=== PATIENT | male | born 1960 | race Caucasian/White ===

== ENCOUNTER 2018-09-19 10:15 | Emergency (ER) | payer OTHER ==
[2018-09-19 11:10] LABS: ADD MAN DIFF? NO; HEMOGLOBIN 10.3 g/dl (14.0-18.0); RED BLOOD COUNT 3.46 10^6/ul (4.70-6.10)
[2018-09-19 11:10] LABS: WHITE BLOOD COUNT 8.1 10^3/ul (4.8-10.8)
[2018-09-19 11:11] LABS: BASOPHIL # 0.1 10^3/ul (0.0-0.1); BASOPHILS % 0.6 % (0.0-2.0); EOSINOPHILS # 0.3 10^3/ul (0.0-0.5); EOSINOPHILS % 3.5 % (0.0-7.0); HEMATOCRIT 30.9 % (42.0-52.0); LYMPHOCYTES # 1.5 10^3/ul (0.8-2.9); LYMPHOCYTES % 18.1 % (15.0-51.0); MEAN CORPUSCULAR HEMOGLOBIN 29.8 pg (29.0-33.0); MEAN CORPUSCULAR HGB CONC 33.3 g/dl (32.0-37.0); MEAN CORPUSCULAR VOLUME 89.3 fl (82.0-101.0); MEAN PLATELET VOLUME 9.9 fl (7.4-10.4); MONOCYTE # 0.7 10^3/ul (0.3-0.9); MONOCYTES % 8.1 % (0.0-11.0); NEUTROPHIL # 5.5 10^3/ul (1.6-7.5); NEUTROPHILS % 68.8 % (39.0-77.0); PLATELET COUNT 168 10^3/UL (140-415); RED CELL DISTRIBUTION WIDTH 12.3 % (11.5-14.5)
[2018-09-19 11:29] LABS: INR 0.96; PROTIME 12.9 Sec (11.9-14.9)
[2018-09-19 11:30] LABS: PARTIAL THROMBOPLASTIN TIME 31.9 Sec (23.0-35.0)
[2018-09-19 11:59] LABS: ALANINE AMINOTRANSFERASE 18 IU/L (13-69); ALBUMIN 3.8 g/dl (3.3-4.9); ALBUMIN/GLOBULIN RATIO 1.15; ALKALINE PHOSPHATASE 59 IU/L (42-121); ANION GAP 13 (5-13); ASPARTATE AMINO TRANSFERASE 16 IU/L (15-46); BILIRUBIN,INDIRECT 0.2 mg/dl (0-1.1); BILIRUBIN,TOTAL 0.2 mg/dl (0.2-1.3); BLOOD UREA NITROGEN 53 mg/dl (7-20); CALCIUM 8.6 mg/dl (8.4-10.2); CARBON DIOXIDE 27 mmol/L (21-31); CHLORIDE 100 mmol/L (97-110); CREATININE 6.92 mg/dl (0.61-1.24); Estimated GFR 8 mL/min (>60); GLUCOSE 243 mg/dl (70-220); POTASSIUM 4.6 mmol/L (3.5-5.1); SODIUM 140 mmol/L (135-144); TOTAL PROTEIN 7.1 g/dl (6.1-8.1)
== END 2018-09-19 13:08 | disposition home or self-care (01) ==
LOC: FTE 10:15
DX: M79.604 Pain in right leg (principal); I12.0 Hypertensive chronic kidney disease with stage 5 chronic kidney disease or end stage renal disease; N18.6 End stage renal disease; E11.22 Type 2 diabetes mellitus with diabetic chronic kidney disease; F17.210 Nicotine dependence, cigarettes, uncomplicated; Z99.2 Dependence on renal dialysis
CPT/HCPCS: 80053; 85025; 85610; 85730; 93971; 99284-25

== ENCOUNTER 2018-09-28 11:20 | Inpatient (IN) | payer OTHER ==
[2018-09-28 12:25] LABS: ADD MAN DIFF? NO
[2018-09-28 12:44] LABS: ANION GAP 10 (5-13); BLOOD UREA NITROGEN 75 mg/dl (7-20); CALCIUM 7.6 mg/dl (8.4-10.2); CARBON DIOXIDE 26 mmol/L (21-31); CHLORIDE 99 mmol/L (97-110); Estimated GFR 6 mL/min (>60); GLUCOSE 162 mg/dl (70-220); POTASSIUM 5.3 mmol/L (3.5-5.1); SODIUM 135 mmol/L (135-144)
[2018-09-28 12:54] LABS: WHITE BLOOD COUNT 7.6 10^3/ul (4.8-10.8)
[2018-09-28 12:54] LABS: BASOPHILS % 0.4 % (0.0-2.0); EOSINOPHILS # 0.2 10^3/ul (0.0-0.5); EOSINOPHILS % 2.8 % (0.0-7.0); HEMATOCRIT 26.4 % (42.0-52.0); HEMOGLOBIN 8.3 g/dl (14.0-18.0); LYMPHOCYTES # 1.1 10^3/ul (0.8-2.9); LYMPHOCYTES % 14.8 % (15.0-51.0); MEAN CORPUSCULAR HEMOGLOBIN 29.6 pg (29.0-33.0); MEAN CORPUSCULAR HGB CONC 31.4 g/dl (32.0-37.0); MEAN CORPUSCULAR VOLUME 94.3 fl (82.0-101.0); MEAN PLATELET VOLUME 10.2 fl (7.4-10.4); MONOCYTE # 0.3 10^3/ul (0.3-0.9); MONOCYTES % 4.3 % (0.0-11.0); NEUTROPHIL # 5.9 10^3/ul (1.6-7.5); PLATELET COUNT 136 10^3/UL (140-415); RED CELL DISTRIBUTION WIDTH 13.1 % (11.5-14.5)
[2018-09-28 13:24] LABS: INR 1.15; PROTIME 14.8 Sec (11.9-14.9); PT RATIO 1.2
[2018-09-28] MEDS ORDERED: ACETAMINOPHEN 325 MG TAB PO (14:00)
[2018-09-28] MEDS ORDERED: ONDANSETRON 4 MG INJ IV ×2 (14:00→14:30)
[2018-09-28] MEDS: DOCUSATE SODIUM 100 MG CAP PO (14:30)
[2018-09-28] MEDS ORDERED: DOCUSATE SODIUM 100 MG CAP PO (14:30)
[2018-09-28] MEDS ORDERED: morphine 2 MG INJ IV (14:30)
[2018-09-28] MEDS ORDERED: NACL 0.9% 3 ML SYG IV (14:30)
[2018-09-28] MEDS ORDERED: HYDROCODONE/APAP (5/325) TAB PO (14:30)
[2018-09-28] MEDS ORDERED: BISACODYL (EC) 5 MG TAB PO (14:30)
[2018-09-28 14:43] LABS: ALANINE AMINOTRANSFERASE 16 IU/L (13-69); ALBUMIN 3.6 g/dl (3.3-4.9); ALKALINE PHOSPHATASE 44 IU/L (42-121); ASPARTATE AMINO TRANSFERASE 37 IU/L (15-46); BILIRUBIN,INDIRECT 0.2 mg/dl (0-1.1); BILIRUBIN,TOTAL 0.2 mg/dl (0.2-1.3); MAGNESIUM 1.5 mg/dl (1.7-2.5); PHOSPHORUS 6.2 mg/dl (2.5-4.9); TOTAL PROTEIN 7.1 g/dl (6.1-8.1)
[2018-09-28] MEDS: LABETALOL HCL 20MG INJ IV (15:25)
[2018-09-28] MEDS: LORAZEPAM 2 MG INJ IV (16:52)
[2018-09-28] MEDS ORDERED: INSULIN ASPART [NOVOLOG] 3 ML PEN SC (18:00)
[2018-09-28] MEDS: ISOSORBIDE MONONITRATE(SR)60 MG TAB PO (18:12)
[2018-09-28] MEDS: NIFEdipine (XL) 60 MG TAB PO (18:13)
[2018-09-28] MEDS ORDERED: hydrALAzine 20 MG INJ IV (18:30)
[2018-09-28 19:42] LABS: HEPATITIS B SURFACE ANTIGEN NEGATIVE (NEGATIVE)
[2018-09-28 19:59] LABS: HEPATITIS B SURFACE ANTIBODY POSITIVE (NEGATIVE)
[2018-09-28] MEDS: ACETAMINOPHEN 325 MG TAB PO (20:03)
[2018-09-28] MEDS: INSULIN ASPART [NOVOLOG] 3 ML PEN SC (21:00)
[2018-09-28] MEDS: CALCIUM ACETATE 667 MG CAP PO (21:22)
[2018-09-28] MEDS ORDERED: VANCOMYCIN IV PER PHARMACY XX (23:55)
[2018-09-29] MEDS: ACETAMINOPHEN 1000MG/100ML IV 100 ML IVPB (00:18)
[2018-09-29] MEDS: GABAPENTIN 300 MG CAP PO ×2 (00:35→22:08)
[2018-09-29] MEDS: FAMOTIDINE 20 MG TAB PO ×2 (00:35→22:09)
[2018-09-29] MEDS: NIFEdipine (XL) 60 MG TAB PO ×3 (00:38→22:09)
[2018-09-29] MEDS: METOPROLOL 25 MG TAB PO ×3 (00:39→22:09)
[2018-09-29] MEDS: SOD CHLORIDE 0.9% 500 ML IV (00:39)
[2018-09-29] MEDS: ATORVASTATIN 10 MG TAB PO (00:39)
[2018-09-29] MEDS: CALCIUM ACETATE 667 MG CAP PO ×4 (00:40→16:55)
[2018-09-29 00:59] LABS: PROCALCITONIN 0.94 ng/mL (0.00-0.10)
[2018-09-29] MEDS: CEFTRIAXONE 2 GM/50 ML (PMX) 50 ML IVPB (01:05)
[2018-09-29] MEDS: VANCOMYCIN HCL 2 GM in SOD CHLORIDE 0.9% 500 ML IVPB (01:44)
[2018-09-29] MEDS: ACCU-CHEK XX (01:49)
[2018-09-29 03:26] LABS: ANION GAP 11 (5-13); BLOOD UREA NITROGEN 44 mg/dl (7-20); CALCIUM 8.1 mg/dl (8.4-10.2); CARBON DIOXIDE 30 mmol/L (21-31); CHLORIDE 99 mmol/L (97-110); CREATININE 6.88 mg/dl (0.61-1.24); Estimated GFR 8 mL/min (>60); GLUCOSE 205 mg/dl (70-220); MAGNESIUM 1.7 mg/dl (1.7-2.5); POTASSIUM 4.1 mmol/L (3.5-5.1); SODIUM 140 mmol/L (135-144)
[2018-09-29 04:12] LABS: THYROID STIMULATING HORMONE 0.838 MIU/L (0.465-4.680)
[2018-09-29 05:41] LABS: ADD MAN DIFF? NO
[2018-09-29 05:44] LABS: BASOPHILS % 0.4 % (0.0-2.0); EOSINOPHILS # 0.3 10^3/ul (0.0-0.5); EOSINOPHILS % 4.2 % (0.0-7.0); HEMATOCRIT 26.3 % (42.0-52.0); HEMOGLOBIN 8.5 g/dl (14.0-18.0); LYMPHOCYTES # 1.4 10^3/ul (0.8-2.9); LYMPHOCYTES % 18.8 % (15.0-51.0); MEAN CORPUSCULAR HEMOGLOBIN 30.4 pg (29.0-33.0); MEAN CORPUSCULAR HGB CONC 32.3 g/dl (32.0-37.0); MEAN CORPUSCULAR VOLUME 93.9 fl (82.0-101.0); MEAN PLATELET VOLUME 9.4 fl (7.4-10.4); MONOCYTE # 0.4 10^3/ul (0.3-0.9); MONOCYTES % 5.2 % (0.0-11.0); NEUTROPHIL # 5.2 10^3/ul (1.6-7.5); PLATELET COUNT 151 10^3/UL (140-415); RED CELL DISTRIBUTION WIDTH 12.9 % (11.5-14.5)
[2018-09-29 05:44] LABS: WHITE BLOOD COUNT 7.4 10^3/ul (4.8-10.8)
[2018-09-29 06:08] LABS: ALANINE AMINOTRANSFERASE 17 IU/L (13-69); ALBUMIN 3.3 g/dl (3.3-4.9); ALBUMIN/GLOBULIN RATIO 0.97; ALKALINE PHOSPHATASE 49 IU/L (42-121); ANION GAP 7 (5-13); ASPARTATE AMINO TRANSFERASE 18 IU/L (15-46); BILIRUBIN,INDIRECT 0.3 mg/dl (0-1.1); BILIRUBIN,TOTAL 0.3 mg/dl (0.2-1.3); BLOOD UREA NITROGEN 47 mg/dl (7-20); CARBON DIOXIDE 30 mmol/L (21-31); CHLORIDE 100 mmol/L (97-110); CREATININE 6.59 mg/dl (0.61-1.24); Estimated GFR 9 mL/min (>60); GLUCOSE 232 mg/dl (70-220); MAGNESIUM 1.7 mg/dl (1.7-2.5); POTASSIUM 4.3 mmol/L (3.5-5.1); SODIUM 137 mmol/L (135-144); TOTAL PROTEIN 6.7 g/dl (6.1-8.1)
[2018-09-29 06:55] LABS: TROPONIN-I 0.125 ng/ml (0.000-0.120)
[2018-09-29] MEDS: INSULIN ASPART [NOVOLOG] 3 ML PEN SC ×5 (07:43→21:00)
[2018-09-29] MEDS ORDERED: GUAIFENESIN/DM 5ML CUP PO (08:00)
[2018-09-29] MEDS ORDERED: LEVALBUTEROL (HFA) 15 GM INHALER INH (08:00)
[2018-09-29] MEDS: MAGNESIUM SULFATE 2 GM/50 ML 50 ML IVPB (09:47)
[2018-09-29] MEDS: ASPIRIN (EC) 81 MG TAB PO (09:48)
[2018-09-29] MEDS: DOCUSATE SODIUM 100 MG CAP PO (09:48)
[2018-09-29] MEDS: ISOSORBIDE MONONITRATE(SR)60 MG TAB PO (09:50)
[2018-09-29] MEDS: ENOXAPARIN 30 MG/0.3 ML SYG SC (09:52)
[2018-09-29 12:28] LABS: CREATINE KINASE 170 IU/L (23-200)
[2018-09-29] MEDS: INSULIN GLARGINE [LANTus] (100 UNITS/ML) SYG SC (12:30)
[2018-09-29 12:41] LABS: CK INDEX 1.4; CK-MB 2.34 ng/ml (0.0-2.4); TROPONIN-I 0.078 ng/ml (0.000-0.120)
[2018-09-29] MEDS: FUROSEMIDE 40 MG INJ IV (14:06)
[2018-09-29] MEDS: EPOETIN ALFA-EPBX (ESRD) 10,000 UNIT/ML VIAL SC (16:55)
[2018-09-29 18:08] LABS: ADD UMIC YES; UR ASCORBIC ACID NEGATIVE (NEGATIVE); UR BILIRUBIN (Dip) NEGATIVE (NEGATIVE); UR BLOOD (Dip) NEGATIVE (NEGATIVE); UR CLARITY CLEAR (CLEAR); UR COLOR YELLOW (YELLOW); UR GLUCOSE (Dip) 3+ mg/dL (NEGATIVE); UR KETONES (Dip) NEGATIVE (NEGATIVE); UR LEUKOCYTE ESTERASE (Dip) NEGATIVE Leu/ul (NEGATIVE); UR NITRITE (Dip) NEGATIVE (NEGATIVE); UR RBC 1 /HPF (0-5); UR SPECIFIC GRAVITY (Dip) 1.015 (1.003-1.030); UR TOTAL PROTEIN (Dip) 3+ mg/dl (NEGATIVE); UR UROBILINOGEN (Dip) NEGATIVE (NEGATIVE); UR WBC 2 /HPF (0-5)
[2018-09-29 19:57] LABS: CREATINE KINASE 176 IU/L (23-200)
[2018-09-29 20:10] LABS: CK INDEX 1.5; TROPONIN-I 0.064 ng/ml (0.000-0.120)
[2018-09-29 20:16] LABS: CK-MB 2.71 ng/ml (0.0-2.4)
[2018-09-29] MEDS: ATORVASTATIN 40 MG TAB PO (22:08)
[2018-09-30] MEDS: ACCU-CHEK XX (01:35)
[2018-09-30] MEDS: CEFTRIAXONE 2 GM/50 ML (PMX) 50 ML IVPB ×2 (01:45→23:38)
[2018-09-30 06:21] LABS: ADD MAN DIFF? NO
[2018-09-30 06:48] LABS: ALANINE AMINOTRANSFERASE 24 IU/L (13-69); ALBUMIN 3.1 g/dl (3.3-4.9); ALBUMIN/GLOBULIN RATIO 0.93; ALKALINE PHOSPHATASE 40 IU/L (42-121); ANION GAP 15 (5-13); ASPARTATE AMINO TRANSFERASE 21 IU/L (15-46); BILIRUBIN,INDIRECT 0.2 mg/dl (0-1.1); BILIRUBIN,TOTAL 0.2 mg/dl (0.2-1.3); BLOOD UREA NITROGEN 62 mg/dl (7-20); CALCIUM 7.9 mg/dl (8.4-10.2); CARBON DIOXIDE 23 mmol/L (21-31); CHLORIDE 96 mmol/L (97-110); CREATININE 8.14 mg/dl (0.61-1.24); Estimated GFR 7 mL/min (>60); GLUCOSE 143 mg/dl (70-220); SODIUM 134 mmol/L (135-144); TOTAL PROTEIN 6.4 g/dl (6.1-8.1)
[2018-09-30 07:22] LABS: MAGNESIUM 1.9 mg/dl (1.7-2.5)
[2018-09-30 07:30] LABS: CHOL/HDL RATIO 4.7 RATIO; HDL CHOLESTEROL 27 mg/dl (28-71); LDL CHOLESTEROL,CALCULATED 72 mg/dl; TRIGLYCERIDES 151 mg/dl (0-149)
[2018-09-30 07:30] LABS: CHOLESTEROL 129 mg/dl (100-200)
[2018-09-30 08:05] LABS: BASOPHILS % 0.6 % (0.0-2.0); EOSINOPHILS # 0.4 10^3/ul (0.0-0.5); EOSINOPHILS % 5.9 % (0.0-7.0); HEMATOCRIT 24.9 % (42.0-52.0); HEMOGLOBIN 8.2 g/dl (14.0-18.0); LYMPHOCYTES % 14.2 % (15.0-51.0); MEAN CORPUSCULAR HEMOGLOBIN 29.9 pg (29.0-33.0); MEAN CORPUSCULAR HGB CONC 32.9 g/dl (32.0-37.0); MEAN CORPUSCULAR VOLUME 90.9 fl (82.0-101.0); MEAN PLATELET VOLUME 10.3 fl (7.4-10.4); MONOCYTE # 0.4 10^3/ul (0.3-0.9); MONOCYTES % 5.2 % (0.0-11.0); NEUTROPHIL # 5.2 10^3/ul (1.6-7.5); NEUTROPHILS % 73.4 % (39.0-77.0); PLATELET COUNT 152 10^3/UL (140-415); RED BLOOD COUNT 2.74 10^6/ul (4.70-6.10); RED CELL DISTRIBUTION WIDTH 12.7 % (11.5-14.5)
[2018-09-30 08:05] LABS: WHITE BLOOD COUNT 7.1 10^3/ul (4.8-10.8)
[2018-09-30] MEDS: CALCIUM ACETATE 667 MG CAP PO ×3 (08:16→17:34)
[2018-09-30] MEDS: INSULIN ASPART [NOVOLOG] 3 ML PEN SC ×7 (08:19→21:47)
[2018-09-30] MEDS: INSULIN GLARGINE [LANTus] (100 UNITS/ML) SYG SC (08:21)
[2018-09-30] MEDS: APIXABAN 5 MG TABLET PO ×2 (08:49→21:39)
[2018-09-30] MEDS: FUROSEMIDE 40 MG INJ IV (08:49)
[2018-09-30] MEDS: DOCUSATE SODIUM 100 MG CAP PO (08:49)
[2018-09-30] MEDS: ISOSORBIDE MONONITRATE(SR)60 MG TAB PO (08:49)
[2018-09-30] MEDS: METOPROLOL 25 MG TAB PO (08:50)
[2018-09-30] MEDS: NIFEdipine (XL) 60 MG TAB PO (08:50)
[2018-09-30] MEDS ORDERED: HEPARIN 5,000 UNIT/1 ML VIAL SC (09:00)
[2018-09-30] MEDS: GABAPENTIN 300 MG CAP PO (21:38)
[2018-09-30] MEDS: ATORVASTATIN 40 MG TAB PO (21:38)
[2018-09-30] MEDS: METOPROLOL 50 MG TAB PO (21:39)
[2018-09-30] MEDS: FAMOTIDINE 20 MG TAB PO (21:39)
[2018-09-30] MEDS: LOSARTAN 50 MG TAB PO (21:39)
[2018-10-01] MEDS: ACCU-CHEK XX (02:50)
[2018-10-01 06:22] LABS: ADD MAN DIFF? NO
[2018-10-01 06:23] LABS: BASOPHILS % 0.4 % (0.0-2.0); EOSINOPHILS # 0.3 10^3/ul (0.0-0.5); EOSINOPHILS % 3.6 % (0.0-7.0); HEMATOCRIT 25.1 % (42.0-52.0); HEMOGLOBIN 8.1 g/dl (14.0-18.0); LYMPHOCYTES % 13.4 % (15.0-51.0); MEAN CORPUSCULAR HEMOGLOBIN 30.1 pg (29.0-33.0); MEAN CORPUSCULAR HGB CONC 32.3 g/dl (32.0-37.0); MEAN CORPUSCULAR VOLUME 93.3 fl (82.0-101.0); MEAN PLATELET VOLUME 10.3 fl (7.4-10.4); MONOCYTE # 0.4 10^3/ul (0.3-0.9); NEUTROPHIL # 5.4 10^3/ul (1.6-7.5); PLATELET COUNT 170 10^3/UL (140-415); RED BLOOD COUNT 2.69 10^6/ul (4.70-6.10); RED CELL DISTRIBUTION WIDTH 12.5 % (11.5-14.5)
[2018-10-01 06:23] LABS: WHITE BLOOD COUNT 7.2 10^3/ul (4.8-10.8)
[2018-10-01 06:57] LABS: ALANINE AMINOTRANSFERASE 18 IU/L (13-69); ALBUMIN 3.4 g/dl (3.3-4.9); ALBUMIN/GLOBULIN RATIO 0.94; ALKALINE PHOSPHATASE 57 IU/L (42-121); ANION GAP 8 (5-13); ASPARTATE AMINO TRANSFERASE 18 IU/L (15-46); BILIRUBIN,INDIRECT 0.3 mg/dl (0-1.1); BILIRUBIN,TOTAL 0.3 mg/dl (0.2-1.3); BLOOD UREA NITROGEN 40 mg/dl (7-20); CALCIUM 8.3 mg/dl (8.4-10.2); CARBON DIOXIDE 27 mmol/L (21-31); CHLORIDE 101 mmol/L (97-110); CREATININE 6.75 mg/dl (0.61-1.24); Estimated GFR 8 mL/min (>60); GLUCOSE 115 mg/dl (70-220); POTASSIUM 4.5 mmol/L (3.5-5.1); SODIUM 136 mmol/L (135-144)
[2018-10-01 07:04] LABS: VANCOMYCIN,RANDOM 10.1 ug/ml
[2018-10-01] MEDS: CALCIUM ACETATE 667 MG CAP PO ×3 (07:40→17:24)
[2018-10-01] MEDS: INSULIN ASPART [NOVOLOG] 3 ML PEN SC ×7 (07:40→22:41)
[2018-10-01] MEDS: INSULIN GLARGINE [LANTus] (100 UNITS/ML) SYG SC (07:43)
[2018-10-01] MEDS: DOCUSATE SODIUM 100 MG CAP PO (08:11)
[2018-10-01] MEDS: APIXABAN 5 MG TABLET PO ×2 (08:11→22:42)
[2018-10-01] MEDS: METOPROLOL 50 MG TAB PO ×2 (08:12→22:47)
[2018-10-01] MEDS: ISOSORBIDE MONONITRATE(SR)60 MG TAB PO (08:13)
[2018-10-01] MEDS: NIFEdipine (XL) 60 MG TAB PO (08:14)
[2018-10-01] MEDS: VANCOMYCIN 1 GM 250 ML IVPB (13:30)
[2018-10-01] MEDS: DOXAZOSIN 1 MG TAB PO (13:58)
[2018-10-01] MEDS: ATORVASTATIN 40 MG TAB PO (22:42)
[2018-10-01] MEDS: GABAPENTIN 300 MG CAP PO (22:42)
[2018-10-01] MEDS: FAMOTIDINE 20 MG TAB PO (22:42)
[2018-10-01] MEDS: LOSARTAN 50 MG TAB PO (22:43)
[2018-10-01] MEDS: DOXAZOSIN 2 MG TAB PO (22:43)
[2018-10-02] MEDS: CEFTRIAXONE 2 GM/50 ML (PMX) 50 ML IVPB (00:35)
[2018-10-02] MEDS: ACCU-CHEK XX (02:00)
[2018-10-02 05:25] LABS: ADD MAN DIFF? NO
[2018-10-02 05:31] LABS: BASOPHILS % 0.3 % (0.0-2.0); EOSINOPHILS # 0.3 10^3/ul (0.0-0.5); EOSINOPHILS % 4.8 % (0.0-7.0); HEMATOCRIT 24.6 % (42.0-52.0); LYMPHOCYTES # 1.1 10^3/ul (0.8-2.9); LYMPHOCYTES % 18.4 % (15.0-51.0); MEAN CORPUSCULAR HEMOGLOBIN 29.6 pg (29.0-33.0); MEAN CORPUSCULAR HGB CONC 32.5 g/dl (32.0-37.0); MEAN CORPUSCULAR VOLUME 91.1 fl (82.0-101.0); MEAN PLATELET VOLUME 9.8 fl (7.4-10.4); MONOCYTE # 0.4 10^3/ul (0.3-0.9); MONOCYTES % 6.3 % (0.0-11.0); NEUTROPHIL # 4.3 10^3/ul (1.6-7.5); NEUTROPHILS % 69.7 % (39.0-77.0); PLATELET COUNT 174 10^3/UL (140-415); RED CELL DISTRIBUTION WIDTH 12.4 % (11.5-14.5)
[2018-10-02 05:31] LABS: WHITE BLOOD COUNT 6.2 10^3/ul (4.8-10.8)
[2018-10-02 06:07] LABS: ALANINE AMINOTRANSFERASE 20 IU/L (13-69); ALBUMIN 3.6 g/dl (3.3-4.9); ALBUMIN/GLOBULIN RATIO 0.97; ALKALINE PHOSPHATASE 57 IU/L (42-121); ANION GAP 9 (5-13); ASPARTATE AMINO TRANSFERASE 18 IU/L (15-46); BILIRUBIN,INDIRECT 0.4 mg/dl (0-1.1); BILIRUBIN,TOTAL 0.4 mg/dl (0.2-1.3); BLOOD UREA NITROGEN 28 mg/dl (7-20); CALCIUM 8.8 mg/dl (8.4-10.2); CARBON DIOXIDE 30 mmol/L (21-31); CHLORIDE 99 mmol/L (97-110); CREATININE 4.81 mg/dl (0.61-1.24); Estimated GFR 13 mL/min (>60); GLUCOSE 99 mg/dl (70-220); POTASSIUM 4.2 mmol/L (3.5-5.1); SODIUM 138 mmol/L (135-144); TOTAL PROTEIN 7.3 g/dl (6.1-8.1)
[2018-10-02] MEDS: INSULIN ASPART [NOVOLOG] 3 ML PEN SC ×4 (07:52→12:03)
[2018-10-02] MEDS: CALCIUM ACETATE 667 MG CAP PO ×2 (07:59→12:06)
[2018-10-02] MEDS: INSULIN GLARGINE [LANTus] (100 UNITS/ML) SYG SC (08:01)
[2018-10-02] MEDS: DOCUSATE SODIUM 100 MG CAP PO (08:33)
[2018-10-02] MEDS: METOPROLOL 50 MG TAB PO (08:34)
[2018-10-02] MEDS: APIXABAN 5 MG TABLET PO (08:34)
[2018-10-02] MEDS: LOSARTAN 50 MG TAB PO (08:35)
[2018-10-02] MEDS: ISOSORBIDE MONONITRATE(SR)60 MG TAB PO (08:35)
[2018-10-02] MEDS ORDERED: NIFEdipine (XL) 30 MG TAB PO (09:00)
[2018-10-02] MEDS: EPOETIN ALFA-EPBX (ESRD) 10,000 UNIT/ML VIAL SC (17:00)
== END 2018-10-02 17:10 | disposition home health service (06) | DRG 871 ==
LOC: 6WM 09-30 17:11 → E/R 11:20 → 6WM 13:52
PROC: 5A1D70Z Performance of Urinary Filtration, Intermittent, Less than 6 Hours Per Day (ICD-10-PCS; principal; 2018-09-28)
DX: A41.9 Sepsis, unspecified organism (principal); I21.4 Non-ST elevation (NSTEMI) myocardial infarction; I50.33 Acute on chronic diastolic (congestive) heart failure; N18.6 End stage renal disease; I13.2 Hypertensive heart and chronic kidney disease with heart failure and with stage 5 chronic kidney disease, or end stage renal disease; E87.5 Hyperkalemia; E11.22 Type 2 diabetes mellitus with diabetic chronic kidney disease; Z99.2 Dependence on renal dialysis; Z91.15 Patient's noncompliance with renal dialysis; E11.42 Type 2 diabetes mellitus with diabetic polyneuropathy; E11.621 Type 2 diabetes mellitus with foot ulcer; L97.509 Non-pressure chronic ulcer of other part of unspecified foot with unspecified severity; I48.0 Paroxysmal atrial fibrillation
CPT/HCPCS: 36415; 71045; 73030; 80048; 80053; 80061; 80076; 80202; 81001; 82550; 82553; 82962; 83036; 83735; 84100; 84145; 84443; 84484; 85025; 85610; 86706; 87040-91; 87086; 87340; 90935; 93005; 93306; 99285-25